=== PATIENT | female | born 1990 | race Caucasian/White ===

== ENCOUNTER 2023-03-18 19:01 | Emergency (ER) | payer OTHER, SELFPAY ==
[2023-03-18 19:16] VITALS: BP 174/99; PULSE 115; RESP 28; TEMP 36.8; O2SAT 100; BMI 37.4
--- NOTE | 2023-03-18 19:32 | ED.ASTHMA ---
HPI - Asthma General Date Seen: 03/18/23 Chief Complaint: Asthma Stated Complaint: asthma Time Seen by Provider: 03/18/23 19:19 Source: patient Mode of arrival: ambulatory Limitations: no limitations History of Present Illness HPI Narrative: Patient is a 33-year-old female presenting to emergency department for shortness of breath. She has a history of asthma she states this feels like 1 of her asthma flares. States but 7 days ago she was having upper respiratory symptoms and was having increase in asthma exacerbations. She is using her home inhalers and treatments with improvement in her symptoms but states today they have not improved. Denies fevers, chills, chest pain, headache, lightheadedness, dizziness, vision changes, nausea/vomiting, diarrhea, constipation. She states this feels exactly like her previous asthma exacerbations. She has not been tested for COVID/flu/RSV recently. Related Data Previous Rx's Medication Instructions Recorded prednisone 20 mg tablet 40 mg (2 x 20 mg) PO DAILY #10 tabs 03/18/23 Allergies Allergy/AdvReac Type Severity Reaction Status Date / Time cefdinir [From Omnicef] Allergy Mild Mouth Verified 03/18/23 19:19 Numbness Review of Systems Status of ROS Reports: 10 or more systems reviewed and unremarkable except as noted in History and below Exam Narrative: Exam Narrative: Const: Well-nourished, Well-developed, in moderate distress Eyes: PERRL, no conjunctival injection, and symmetrical lids HENT: Atraumatic external nose and ears. Moist mucous membranes. Neck: Symmetric, trachea midline, No thyromegaly. CVS: Tachycardia, No murmurs or gallops. Peripheral pulses 2+ and equal in all extremities RESP: Diffuse wheezing, increased respiratory effort GI: Nontender/Nondistended, No rebound or guarding. MSK:Extremities w/o deformity, Normal Active ROM Skin: Warm, Dry. No rashes or lesions. Neuro: Normal Muscle tone, No focal neurological deficits. Psych: Awake, Alert, & Oriented x3. Appropriate mood and affect. Const: Vital Signs, click to edit/add: Vital Signs - 24 hr 03/18/23 19:16 Temperature 98.2 F Pulse Rate [Right Pulse Oximeter] 115 H Respiratory Rate 28 H Blood Pressure [Ri ght Upper Arm] 174/99 H Pulse Oximetry 100 Oxygen Delivery Me thod Room Air Course Vital Signs Vital signs: Initial Vital Signs Temperature 98.2 F 03/18/23 19:16 Temperature Source Temporal Artery Scan 03/18/23 19:16 Pulse Rate 115 H 03/18/23 19:16 Respiratory Rate 28 H 03/18/23 19:16 Blood Pressure 174/99 H 03/18/23 19:16 Blood Pressure Mean 124 H 03/18/23 19:16 Blood Pressure Position Sitting 03/18/23 19:16 Pulse Oximetry 100 03/18/23 19:16 Oxygen Delivery Method Room Air 03/18/23 19:16 Vital Signs Temperature 98.2 F 03/18/23 19:16 Pulse Rate 115 H 03/18/23 19:16 Respiratory Rate 28 H 03/18/23 19:16 Blood Pressure 174/99 H 03/18/23 19:16 Pulse Oximetry 100 03/18/23 19:16 Oxygen Delivery Method Room Air 03/18/23 19:16 Temperature 98.2 F 03/18/23 19:16 Pulse Rate 115 H 03/18/23 19:16 Respiratory Rate 28 H 03/18/23 19:16 Blood Pressure 174/99 H 03/18/23 19:16 Pulse Oximetry 100 03/18/23 19:16 Oxygen Delivery Method Room Air 03/18/23 19:16 MDM - Asthma MDM Narrative Medical decision making narrative: Patient is a 33-year-old female presenting to emergency department for for concern of breath. He states this feels exactly like previous asthma. Does have upper respiratory infection last week he says. Has not been tested for COVID/flu/RSV. These tests were ordered. Since she states this feels just like her previous asthma exacerbation now give her a breathing treatment and some steroids. Pepcid breathing treatment she says her breathing feels back to normal and this into her lungs the wheezing has improved significantly. Her heart rate was still 110 but she states she has been using lots of albuterol today we just gave another albuterol nebulizer. That is likely why she is still tachycardic at this time patient states she feels back to normal into safe for discharge home will discharge her at this time. We will call her with results of the COVID/flu/RSV test if anything is positive. She is agreeable to this plan Discharge Plan Discharge Clinical Impression: Asthma Patient Disposition: Home, Self-Care Condition: Stable Instructions: Asthma (DC) Additional Instructions: Continue to use her home inhalers as needed. Return for new or worsening symptoms. Take the prednisone as prescribed Prescriptions: New prednisone 20 mg tablet 40 mg PO DAILY Qty: 10 0RF Stand Alone Forms: [employer] Info Instructions
[2023-03-18 20:17] VITALS: BP 134/78; PULSE 108; RESP 20; TEMP 36.8; O2SAT 100
[2023-03-18 20:47] LABS: PCR FLU A Negative PCR FLU A (Negative); PCR FLU B Negative PCR FLU B (Negative); PCR RSV Negative PCR RSV (Negative)
[2023-03-18 20:48] LABS: SARS PCR* Negative SARS-CoV-2 (Negative)
== END 2023-03-18 20:29 | disposition home or self-care (01) ==
LOC: ED 20:08
PROVIDERS: Emergency Provider Student in an Organized Health Care Education/Training Program
DX: J45.909 Unspecified asthma, uncomplicated (principal)
CPT/HCPCS: 87631; 94761; 99282; 99284

== ENCOUNTER 2024-05-22 09:19 | Outpatient (CLI) | payer OTHER, SELFPAY | END 2024-05-22 09:20 | disposition home or self-care (01) | LOC: NFLDREF 22:33 | DX: N30.01 Acute cystitis with hematuria (principal); N39.0 Urinary tract infection, site not specified; B37.31 Acute candidiasis of vulva and vagina | CPT/HCPCS: 87086 ==

== ENCOUNTER 2024-09-05 14:31 | Outpatient (CLI) | payer OTHER, SELFPAY ==
[2024-09-05 22:51] LABS: Chlamydia DNA Amplified* NOT DETECTED (No Detected); GC DNA Amplified* NOT DETECTED (No Detected)
== END 2024-09-05 14:32 | disposition home or self-care (01) ==
LOC: NFLDUCREF 14:32
DX: N94.10 Unspecified dyspareunia (principal)
CPT/HCPCS: 87086; 87491; 87591